=== PATIENT | female | born 1945 | race Two or more races ===

== ENCOUNTER 2025-06-17 12:59 | Observation (INO) | payer MEDICARE ==
[~2025-06-17] VITALS: Ht 154.9 cm; Wt 58.5 kg
[2025-06-17 14:03] LABS: BASOPHILS % 0.7 % (0.0-1.0); EOSINOPHILS % 0.9 % (0.0-6.0); LYMPHOCYTES % 27.8 % (18.0-39.1); MONOCYTES % 8.1 % (4.4-11.3); NEUTROPHILS % 62.2 % (38.7-80.0); RED CELL DISTRIBUTION WIDTH 21.3 % (11.7-14.4)
[2025-06-17 14:26] LABS: EST GLOMERULAR FILTRATION RATE 90.0 ML/MIN (>=60)
[2025-06-17] MEDS ORDERED: SODIUM CHLORIDE FLUSH 10 ML SYR INJ PRN (18:30)
[2025-06-17] MEDS ORDERED: ONDANSETRON HCL INJ 2MG/ML 2ML 2 MG/ML VIAL IV PRN (18:30)
[2025-06-17 18:41] LABS: % IRON SATURATION 4.0 % (15-50)
[2025-06-17 20:23] VITALS: PULSE 77; RESP 16; TEMP 98.3
[2025-06-17 20:51] VITALS: BP 166/65; PULSE 84; RESP 18; TEMP 98.1; O2SAT 100
[2025-06-17 22:30] VITALS: BP 166/65; PULSE 84; RESP 18; TEMP 98.1; O2SAT 100
[2025-06-17] MEDS ORDERED: DEXTROSE 50% SYRINGE 50 ML IV PRN (23:00)
[2025-06-17 23:20] VITALS: BP 141/59; PULSE 79; RESP 18; TEMP 98.4; O2SAT 100
[2025-06-17] MEDS: INSULIN LISPRO 100 UNIT/1 ML 3ML VIAL SQ SCH (23:37)
[2025-06-18] VITALS (9 sets, daily range): BP systolic 117–182; BP diastolic 52–75; PULSE 71–76; RESP 16–19; TEMP 97.6–98.3; O2SAT 96–100
[2025-06-18] MEDS ORDERED: TRAMADOL HCL 50 MG TAB PO PRN (01:15)
[2025-06-18] MEDS ORDERED: ACETAMINOPHEN 325 MG TAB PO PRN (01:15)
[2025-06-18] MEDS ORDERED: DOCUSATE SODIUM 100 MG CAP PO PRN (01:15)
[2025-06-18] MEDS ORDERED: LIDOCAINE 4% PATCH TP PRN (01:15)
[2025-06-18] MEDS ORDERED: BENZONATATE 100 MG CAP PO PRN (01:15)
[2025-06-18] MEDS ORDERED: MELATONIN 5 MG TABLET PO PRN (01:15)
[2025-06-18] MEDS ORDERED: HYDRALAZINE HCL 20 MG/ML VIAL IV PRN (01:15)
[2025-06-18] MEDS ORDERED: ALBUTEROL/IPRATROPIUM 3 ML NEB NEB PRN (01:15)
[2025-06-18] MEDS ORDERED: DIPHENHYDRAMINE HCL 25 MG CAP PO PRN (01:15)
[2025-06-18] MEDS ORDERED: SIMETHICONE 80 MG CHEW PO PRN (01:15)
[2025-06-18] MEDS ORDERED: DEXTROSE 50% SYRINGE 50 ML IV PRN (01:15)
[2025-06-18] MEDS: SODIUM CHLORIDE 0.9% 250ML 250 ML IV ONE ×2 (03:15→03:21)
[2025-06-18] MEDS: SODIUM CHLORIDE 0.9% 250ML 250 ML ONE (06:13)
[2025-06-18 06:15] LABS: BASOPHILS % 0.8 % (0.0-1.0); EOSINOPHILS % 0.8 % (0.0-6.0); LYMPHOCYTES % 23.8 % (18.0-39.1); MONOCYTES % 11.3 % (4.4-11.3); NEUTROPHILS % 62.8 % (38.7-80.0); RED CELL DISTRIBUTION WIDTH 28.7 % (11.7-14.4)
[2025-06-18 06:41] LABS: EST GLOMERULAR FILTRATION RATE 93.0 ML/MIN (>=60)
[2025-06-18 08:21] LABS: BASOPHILS % (MANUAL) 1 % (0-1.5); LYMPHOCYTES % (MANUAL) 21 % (19-48); MONOCYTES % (MANUAL) 4 % (3.4-9.0); MYELOCYTES % (MANUAL) 1 % (0-0); NEUTROPHILS % (MANUAL) 73 % (40-74); PLATELET ESTIMATE ADEQUATE; PLATELET MORPHOLOGY COMMENT NORMAL; RBC MORPHOLOGY COMMENT NORMAL
[2025-06-18] MEDS ORDERED: GABAPENTIN100 MG PO (08:33)
[2025-06-18] MEDS ORDERED: HYDRALAZINE HCL25 MG PO (08:33)
[2025-06-18] MEDS ORDERED: SIMVASTATIN20 MG PO (08:33)
[2025-06-18] MEDS ORDERED: METFORMIN HCL500 MG PO (08:33)
[2025-06-18] MEDS ORDERED: LISINOPRIL40 MG PO (08:33)
[2025-06-18] MEDS ORDERED: LANTUS 3ML100 UNITS/ SC (08:33)
[2025-06-18] MEDS: PANTOPRAZOLE SOD 40 MG TABEC PO SCH (08:56)
[2025-06-18] MEDS: IRON SUCROSE 100 MG in SODIUM CHLORIDE 0.9% 100 ML IV SCH (08:57)
[2025-06-18] MEDS ORDERED: IOPAMIDOL 370 MG/ML 100 ML INFUS..BTL INJ ONE (14:07)
[2025-06-19] VITALS (9 sets, daily range): BP systolic 121–172; BP diastolic 59–75; PULSE 67–83; RESP 16–20; TEMP 97.4–98.3; O2SAT 95–100
[2025-06-19 06:17] LABS: BASOPHILS % 1.0 % (0.0-1.0); EOSINOPHILS % 2.0 % (0.0-6.0); LYMPHOCYTES % 27.9 % (18.0-39.1); MONOCYTES % 10.2 % (4.4-11.3); NEUTROPHILS % 58.4 % (38.7-80.0); RED CELL DISTRIBUTION WIDTH 28.7 % (11.7-14.4)
[2025-06-19 06:47] LABS: EST GLOMERULAR FILTRATION RATE 92.0 ML/MIN (>=60); PHOSPHORUS 4.1 MG/DL (2.3-4.7)
[2025-06-19 09:50] LABS: EOSINOPHILS % (MANUAL) 1 % (0-7); LYMPHOCYTES % (MANUAL) 29 % (19-48); MONOCYTES % (MANUAL) 7 % (3.4-9.0); NEUTROPHILS % (MANUAL) 63 % (40-74); PLATELET ESTIMATE ADEQUATE; PLATELET MORPHOLOGY COMMENT NORMAL; RBC MORPHOLOGY COMMENT ABNORMAL
[2025-06-19 09:51] LABS: ELLIPTOCYTE, RBC SLIGHT
[2025-06-19] MEDS: POTASSIUM CHLORIDE 20 MEQ TAB CR PO PRN (17:03)
[2025-06-19] MEDS: GABAPENTIN 100 MG CAP PO SCH (17:04)
[2025-06-19] MEDS: CYANOCOBALAMIN INJ 1,000 MCG/ML VIAL IM SCH (17:04)
[2025-06-19] MEDS: HYDRALAZINE HCL 25 MG TAB PO SCH (17:04)
[2025-06-19] MEDS ORDERED: SIMVASTATIN 20 MG TAB PO SCH (21:00)
[2025-06-20] MEDS ORDERED: LISINOPRIL 20 MG TAB PO SCH (09:00)
[2025-06-22 19:11] LABS: ENDOMYSIAL ANTIBODIES, IGA Negative (Negative)
[2025-06-23 16:38] LABS: TISSUE TRANSGLUTAMINASE IGA AB <2 U/mL (0-3)
== END 2025-06-19 17:40 | disposition home or self-care (01) ==
LOC: ER 13:38 → ERHOLD 18:19 → MED/SURG3 22:08
PROVIDERS: ADMIT Internal Medicine; ATTEND Internal Medicine
DX: D50.9 Iron deficiency anemia, unspecified (principal); E53.9 Vitamin B deficiency, unspecified; E11.9 Type 2 diabetes mellitus without complications; Z79.4 Long term (current) use of insulin; Z79.84 Long term (current) use of oral hypoglycemic drugs; I10 Essential (primary) hypertension; K74.60 Unspecified cirrhosis of liver
CPT/HCPCS: 36415 ×3; 36430 ×2; 74174; 80048; 80053 ×2; 82607; 82728; 82746; 82784; 82948 ×3; 83516; 83540; 83735; 84100; 84443; 84466; 85025 ×3; 86256; 86850; 86900; 86920; 94799 ×2; 96372; 97161; 99284; G0378 ×3; J1756 ×2; J2470 ×2; J3420; J7050 ×4; P9016 ×2; Q9967